=== PATIENT | female | born 1985 | race Caucasian/White ===

== ENCOUNTER → 2019-03-10 12:58 | Outpatient (BNVA) | payer OTHER, MEDICAID, SELFPAY | PROVIDERS: Family Provider Family Medicine; PCP Family Medicine; Visit Provider Obstetrics & Gynecology | DX: Z34.83 Encounter for supervision of other normal pregnancy, third trimester (principal) | CPT/HCPCS: 84315; 87086 ==

== ENCOUNTER → 2019-03-24 15:08 | Outpatient (BNVA) | payer OTHER, MEDICAID, SELFPAY | PROVIDERS: Family Provider Family Medicine; PCP Family Medicine; Visit Provider Nurse Practitioner Women's Health | DX: Z34.90 Encounter for supervision of normal pregnancy, unspecified, unspecified trimester (principal) | CPT/HCPCS: 84315 ==

== ENCOUNTER → 2019-04-07 13:08 | Outpatient (BNVA) | payer OTHER, MEDICAID, SELFPAY | PROVIDERS: Family Provider Family Medicine; PCP Family Medicine; Visit Provider Obstetrics & Gynecology | DX: Z01.89 Encounter for other specified special examinations (principal) | CPT/HCPCS: 84315 ==

== ENCOUNTER → 2019-04-21 12:58 | Outpatient (BNVA) | payer OTHER, MEDICAID, SELFPAY | PROVIDERS: Family Provider Family Medicine; PCP Family Medicine; Visit Provider Obstetrics & Gynecology | DX: O32.1XX0 Maternal care for breech presentation, not applicable or unspecified (principal); Z3A.19 19 weeks gestation of pregnancy | CPT/HCPCS: 84315; 87081 ==

== ENCOUNTER → 2019-04-28 12:58 | Outpatient (BNVA) | payer OTHER, MEDICAID, SELFPAY | PROVIDERS: Family Provider Family Medicine; PCP Family Medicine; Visit Provider Obstetrics & Gynecology | DX: Z01.89 Encounter for other specified special examinations (principal) | CPT/HCPCS: 84315 ==

== ENCOUNTER → 2019-05-05 13:06 | Outpatient (BNVA) | payer OTHER, MEDICAID, SELFPAY | PROVIDERS: Family Provider Family Medicine; PCP Family Medicine; Visit Provider Obstetrics & Gynecology | DX: Z01.89 Encounter for other specified special examinations (principal) | CPT/HCPCS: 84315 ==

== ENCOUNTER → 2019-05-12 13:02 | Outpatient (BNVA) | payer OTHER, MEDICAID, SELFPAY | PROVIDERS: Family Provider Family Medicine; PCP Family Medicine; Visit Provider Obstetrics & Gynecology | DX: Z01.89 Encounter for other specified special examinations (principal) | CPT/HCPCS: 84315 ==

== ENCOUNTER 2019-05-16 13:09 | Inpatient (IN) | payer OTHER, MEDICAID, SELFPAY ==
[2019-05-16] VITALS (11 sets, daily range): BP systolic 0–127; BP diastolic 0–76; PULSE 61–80; RESP 14–16; TEMP 36.8–36.9; BMI 30.4
[2019-05-16] MEDS: miSOPROStol 100 mcg tablet 25 MCG VAGINAL (14:15)
[2019-05-16 14:18] LABS: Basophils # 0.1 10^3/uL (0.0-0.1); Basophils % 0.5 %; Eosinophils # 0.2 10^3/uL (0.0-0.8); Eosinophils % 1.8 %; Hematocrit 33.4 % (37.0-47.0); Hemoglobin 10.7 g/dL (11.5-15.3); Lymphocytes # 1.2 10^3/uL (0.8-4.8); Lymphocytes % 11.3 %; Mean Corpuscular Hemoglobin 28.9 pg (28.0-34.0); Mean Corpuscular Volume 90.3 fL (81-99); Mean Platelet Volume 11.4 fL (7.4-10.4); Monocytes # 0.7 10^3/uL (0.2-0.9); Monocytes % 6.1 %; Neutrophils # 8.6 10^3/uL (1.8-7.7); Neutrophils % 79.5 %; Nucleated Red Blood Cells % 0 %; Platelet Count 145 10^3/cmm (130-400); Red Cell Distribution Width 13.9 % (12.1-15.1); White Blood Count 10.8 10^3/uL (4.0-10.0)
--- NOTE | 2019-05-16 21:37 | PM.PN ---
Subjective Subjective: Interval history: Patient is a 34-year-old white female 3, para 2-0-0-2 with an LMP of 08/11/2018 and an EDC of 05/18/2019 based on LMP and early ultrasound which placed her at 39-5/7 weeks gestation today. She had presented to labor and delivery this afternoon for induction of labor due to term . She received 1 dose of Cytotec and proceeded into labor. Patient is uncomfortable with contractions and feeling pressure. I was contacted by the nurse due to a question on exam. Nurse was thinking that there was a forebag below the head. She reported her as being 9 cm dilated. Vitals/I&O/Wt Last Vital Signs Temp 98.3 F 05/16/19 19:09 Pulse 72 05/16/19 18:36 Resp 16 05/16/19 13:23 BP 127/70 05/16/19 18:36 Weight last 48 hrs Weight 194 lb Physical Exam Const: COMMON NORMALS: no apparent distress, average body habitus, alert and well nourished GENERAL APPEARANCE: well developed ORIENTATION/CONSCIOUSNESS: Yes oriented to person, Yes oriented to place and Yes oriented to time Resp: COMMON NORMALS: normal respiratory effort and clear to auscultation bilaterally AUSCULTATION: clear to auscultation bilaterally Cardio: COMMON NORMALS: regular rate, regular rhythm, no gallops, no murmurs and no rub RATE: regular rate RHYTHM: regular rhythm : OTHER: She is 9 cm dilated with what it felt to be a breech presentation. Bedside ultrasound confirmed loli breech presentation. Neuro: SENSORIUM/ORIENTATION: Yes alert, Yes oriented to person, Yes oriented to place and Yes oriented to time Psych: COMMON NORMALS: affect normal MOOD & AFFECT: Yes euthymic mood Data : 05/16/19 14:00 A&P Assessment and plan (1) Breech presentation: Discussed with patient and partner the risks associated with attempted vaginal breech delivery. She is a good candidate with this being her third delivery with the baby in a loli breech presentation. However, after discussing the risks of potential head entrapment, patient wishes to proceed with a section. Risks of section were discussed with her including bleeding to the point of needing a blood transfusion, infection, and injury to intra-abdominal organs including bowel, bladder, blood vessels, nerves, and ureters. Questions were answered. She still wished to proceed with section. She will be emergently prepared for . Status: Acute Code(s): O32.1XX0 - Maternal care for breech presentation, not applicable or unspecified Attestations Medical Necessity Statement*: Patient is in labor with breech presentation. Coding Level of Care Code Acute Sander Wooden Pencils for Portia Worthy Diagnoses Breech presentation O32.1XX0
--- NOTE | 2019-05-16 22:34 | P.ANESASSM_ITS ---
Pre-Anesthetic Assessment Pre-Anesthetic Assessment: Height/Weight: Height 1.7 m Weight 87.997 kg Temp Pulse Resp BP 98.3 F 72 16 127/70 05/16/19 19:09 05/16/19 18:36 05/16/19 13:23 05/16/19 18:36 Preop Diagnosis: Breech presentation Proposed Procedure: Familial anesthetic complications: None Last intake: NPO > 8 hrs Ate 0900 Drank 1300 Social: Social History: No alcohol and No tobacco Exam: Pre-Anes Outpt Exam: alert, oriented x 3, clear to auscultation bilaterally and regular rate & rhythm Airway: Cervical ROM: WNL MP: 3 Dentition: Full Pulmonary: Pulmonary: None reported CV/HEM: CV/HEM: None reported : : None reported Hepatic: Hepatic: None reported GI: GI: None reported Metabolic: Metabolic: None reported Musc/skel: Musc/skel: None reported Neuropsych: Neuropsych: None reported Anesthetic Plan: ASA status: 2E Anesthesia: Regional (specify below) Other: spinal for emergent (breech presentation) Risk of > 500 ml blood loss (7ml/kg in children): Yes, adequate IV access and fluids planned PFS Anesthesia Female Reproductive History: : 3 Data Anesthesia CBC & Chem 7: 05/16/19 14:00 Other Labs: Laboratory Results - last 48 hr 05/16/19 14:00 WBC 10.8 H RBC 3.70 L Hgb 10.7 L Hct 33.4 L MCV 90.3 MCH 28.9 MCHC 32.0 RDW 13.9 Plt Count 145 MPV 11.4 H Neut % (Auto) 79.5 Lymph % (Auto) 11.3 Andrew % (Auto) 6.1 Eos % (Auto) 1.8 Baso % (Auto) 0.5 Neut # (Auto) 8.6 H Lymph # (Auto) 1.2 Andrew # (Auto) 0.7 Eos # (Auto) 0.2 Baso # (Auto) 0.1 Nucleated RBC % (auto) 0 Nucleated RBCs # 0.0 Cardiac Studies: No Data to Display
--- NOTE | 2019-05-16 23:06 | PM.OP ---
Operative Report Date of procedure: May 16, 2019 Pre-op Diagnosis: Breech presentation, Term at 39-5/7 weeks gestation Post-op Diagnosis: Loli breech presentation, Term at 39-5/7 weeks gestation, Viable female Procedure Done: Primary low transverse section Specimens removed/disposition: None Surgeon: Noe Soria Bridge Crane Operator: VIRI Ortega Anesthesia: Other (Spinal) Estimated blood loss (mL): 800 Complications: None Brief History: Patient is a 34-year-old white female 3, para 2-0-0-2 with an LMP of 08/11/2018 and an EDC of 05/18/2019 based on LMP and consistent with early ultrasound, which placed her at 39-5/7 weeks gestation today. She had presented to labor and delivery this afternoon for induction of labor due to term . By the nurses exam, she was reported to be 1 cm dilated, uneffaced, posterior cervix. She received 1 dose of Cytotec 25 mcg vaginally and proceeded into labor. At approximately 1830, she had spontaneous rupture of membranes and was 2 cm dilated. Approximately 30 minutes later she was checked and was noted to have a forebag. She was 3 cm dilated at the time and the forebag was ruptured. At approximately 2114, she was checked by the nurse and reported as 9 cm dilation with a probable second forebag. I went in and checked following this and I was suspicious of a breech presentation. Bedside ultrasound was quickly performed and confirmed a loli breech presentation. The risks associated with a vaginal breech delivery was discussed and patient wished to proceed with a section. Procedure: Patient was taken to the operating room where spinal anesthesia was obtained. She was prepped and draped in the usual sterile fashion in a dorsal supine position with a leftward tilt. Stover catheter and sequential compression boots had been placed prior to starting the case. A Pfannenstiel skin incision was made with a knife and carried down to the underlying fascia with the knife. Fascia was incised in the midline with the knife and extended laterally with Mello scissors. Superior aspect of the fascia was grasped with Stacy clamps, elevated, and sharply and bluntly dissected. The inferior aspect of the fascia was grasped with Stacy clamps, elevated, and sharply and bluntly dissected. The rectus muscles were in the midline. Peritoneum was sharply entered. Peritoneal incision was extended both superiorly and inferiorly with good visualization of the bladder. Bladder blade was inserted. The vesicouterine peritoneum was tented up and sharply entered. It was extended laterally and the bladder flap was created digitally. Bladder blade was reinserted. A transverse incision was made with the knife in the lower uterine segment. Clear fluid was obtained upon entry into the uterine cavity. The baby's buttocks was presenting at the incision. The buttocks was grasped elevated and delivered through the incision. This was delivered until the legs were able to be delivered through incision. The baby was then delivered up to the shoulders. It was rotated in a clockwise direction facilitating delivery of the left arm. It was then rotated in a counterclockwise direction facilitating delivery of the right arm. The baby was then elevated and the head was delivered. 2 loops of nuchal cord were noted and reduced. The cord was clamped and cut and the infant was handed off to the waiting nurses. Cord blood was obtained. Placenta was delivered via uterine massage. Patient received 20 units of Pitocin in the IV fluids. The uterus was exteriorized and cleared of clots and debris. The uterine incision was closed in a running locking fashion using 0 Vicryl suture. The incision was imbricated using 0 Vicryl suture in a horizontal mattress fashion. The incision was inspected and noted to be hemostatic. Posterior cul-de-sac was thoroughly irrigated and cleared of clots and blood. The uterus was returned to the abdomen. The uterine incision was irrigated and noted to be hemostatic. The gutters were cleared of clots and blood. The rectus muscles and peritoneum were reapproximated in the midline using interrupted stitches of 2-0 Vicryl suture. The muscle layer was irrigated and noted to be hemostatic. The fascia was reapproximated using 0 Vicryl suture in a running fashion. The subcutaneous layer was irrigated and brought to hemostasis using electrocautery. It was reapproximated using 3-0 plain suture in an interrupted fashion. Skin was reapproximated using 4-0 Vicryl suture in a subcuticular fashion. Steri-Strips were applied. Patient tolerated the procedures well. Sponge, needle, and instrument counts were correct. DRAINS: Stover catheter FINDINGS: 1. Viable, female infant, loli breech presentation, weighing 8 lbs 0 oz (3620 g) with a length of 20-3/4 inches and Apgars of 8 at 1 minute and 9 at 5 minutes. 2. Normal appearing uterus, tubes, and ovaries. POSTOPERATIVE STATUS: The patient was left to recover in satisfactory condition
[2019-05-17] VITALS (10 sets, daily range): BP systolic 88–104; BP diastolic 52–70; PULSE 67–89; RESP 14–18; TEMP 36.4–36.9; O2SAT 95–98
[2019-05-17] MEDS: metoclopramide 5 mg/mL SDV 2 mL 10 MG IV (00:19)
[2019-05-17] MEDS: lactated ringers 1,000 ML 125 ML IV (00:20)
[2019-05-17] MEDS: metoclopramide 5 mg/mL SDV 2 mL 10 MG IVP (00:20)
[2019-05-17] MEDS: citric acid-sodium citrate 30 mL UDC PO (00:22)
[2019-05-17] MEDS: famotidine 20 mg/2 mL INJ IVP (00:23)
[2019-05-17] MEDS: dextrose 5%-lactated ringers 1,000 ML 125 ML IV (02:41)
--- NOTE | 2019-05-17 02:59 | PC.NURSE ---
2345 05/16/2019 PATIENT TRANSFERRED FROM PACU TO RM [id number]. SHIRA RN
--- NOTE | 2019-05-17 03:06 | PC.NURSE ---
INTAKE/OUTPUT INTERVENTION ENTERED IN ERROR. SHIRA RN
--- NOTE | 2019-05-17 05:44 | PC.NURSE ---
0545 05/17/2019 Patient up to chair. Clear liquids set up. Patient tolerates activity well. SHIRA RN
[2019-05-17] MEDS: prenatal vitamin Capsule 1 CAP PO (09:01)
[2019-05-17] MEDS: docusate sodium 100 mg Capsule PO ×2 (09:01→21:35)
--- NOTE | 2019-05-17 09:01 | P.PN_ITS ---
Subjective Subjective: Interval history: Denies complaints. Reports pain has been well controlled with Duramorph. Denies any lightheadedness or dizziness with getting up to chair. Denied any shortness of breath or chest pains. Denies any nausea or vomiting. Tolerating a clear liquid diet. Vitals/I&O/Wt Last Vital Signs Temp 98.3 F 05/16/19 19:09 Pulse 78 05/17/19 05:46 Resp 14 05/17/19 05:46 BP 97/63 05/17/19 05:46 Pulse Ox 95 05/17/19 05:46 05/16/19 05/17/19 05/17/19 22:59 06:59 14:59 Intake Total 240 / 240 Output Total 350 / 350 Balance -110 / -110 Weight last 48 hrs Weight 194 lb Physical Exam Const: COMMON NORMALS: no apparent distress, average body habitus, alert and well nourished GENERAL APPEARANCE: well developed ORIENTATION/CONSCIOUSN ESS: Yes oriented to person, Yes oriented to place and Yes oriented to time Resp: COMMON NORMALS: normal respiratory effort and clear to auscultation bilaterally AUSCULTATION: clear to auscultation bilaterally Cardio: COMMON NORMALS: regular rate, regular rhythm, no gallops, no murmurs and no rub RATE: regular rate RHYTHM: regular rhythm PERIPHERAL PULSES: posterior tibial pulses present GI: COMMON NORMALS: soft to palpation, no hepatosplenomegaly and no masses (Except for firm uterus, approximately 1 fingerbreadth below the umbilicus) INSPECTION: Yes incision (Dressing dry) AUSCULTATION: Yes normoactive bowel sounds PALPATION: Yes soft, Yes tender (In the lower abdomen), Yes no hepatosplenomegaly and No hernia : EXTERNAL FEMALE EXAM: No hernia Neuro: SENSORIUM/ORIENTATION: Yes alert, Yes oriented to person, Yes oriented to place and Yes oriented to time Psych: COMMON NORMALS: affect normal MOOD & AFFECT: Yes euthymic mood Urinary Catheter Management^: Stover: Cath Placed During This Visit: yes Urinary Catheter Date of Insertion: 05/16/19 Data : 05/16/19 14:00 A&P Assessment and plan (1) Breech presentation: Postoperative day 1, status post primary section. Patient doing well at this time. Pain medication use as Duramorph wears off discussed with patient. Increase activities through the day. May shower later this afternoon. Continue clear liquids until passing flatus. Status: Acute Code(s): O32.1XX0 - Maternal care for breech presentation, not applicable or unspecified Attestations Medical Necessity Statement*: Patient is less than 12 hours out from a section. Coding Level of Care Code Acute Photographic Equipment Assembler for Chg Fwd Diagnoses Breech presentation O32.1XX0
--- NOTE | 2019-05-17 13:10 | ANE.PACU2 ---
 Inpatient post-anesthesia follow up: Airway intact: Yes Vital signs: Temperature 98.3 F Pulse Rate 70 Respiratory Rate 17 Blood Pressure 98/65 Pulse Oximetry 96 Oxygen Delivery Me thod Room Air Oxygen Flow Rate Fraction of Inspir ed Oxygen Hydration adequate: Yes Nausea and vomiting: No Pain level: 1 Mental status: Baseline Additional Comments: Doing well no H/A, no residual numbness
[2019-05-17 14:32] LABS: Hematocrit 28.8 % (37.0-47.0); Hemoglobin 9.2 g/dL (11.5-15.3); Mean Corpuscular HGB Conc 31.9 g/dL (30.0-36.0); Mean Corpuscular Hemoglobin 29.1 pg (28.0-34.0); Mean Corpuscular Volume 91.1 fL (81-99); Mean Platelet Volume 11.1 fL (7.4-10.4); Platelet Count 142 10^3/cmm (130-400); Red Blood Count 3.16 10^6/uL (4.1-5.3); Red Cell Distribution Width 14.1 % (12.1-15.1); White Blood Count 14.9 10^3/uL (4.0-10.0)
[2019-05-18 04:00] VITALS: BP 103/68; PULSE 73; RESP 16; TEMP 36.8
[2019-05-18 07:20] VITALS: PULSE 71; RESP 16; O2SAT 99
[2019-05-18 07:25] VITALS: PULSE 73
--- NOTE | 2019-05-18 07:45 | PM.DCS ---
Discharge Providers Date of Admission: 05/16/19 13:09 Date of Discharge: May 18, 2019 Attending Provider at Admission: Christiane Michaels MD Attending Provider at Discharge: Noe Soria MD Primary Care Provider: Jarocho Schafer MD Diagnoses at Discharge Discharge Diagnosis (1) Breech presentation: Status: Acute (2) Anemia during , delivered, current hospitalization: Status: Acute Reason for Visit Reason for Visit: Reason For Visit: INDUCTION Hospital Course Hospital Course: Patient is a 34-year-old white female 3, now para 3-0-0-3 with an LMP of 08/11/2018 and an EDC of 05/18/2019 She presented to labor and delivery in the afternoon of 05/16/2019 for Cytotec cervical ripening due to term at 39-5/7 weeks gestation. She had a very unfavorable cervix with the cervix being 1 cm dilated, thick, high, moderate consistency, and posterior. She received 1 dose of Cytotec 25 mcg vaginally and proceeded to contract regularly. She progressed into labor. She had spontaneous rupture membranes with clear fluid present. She progressed approximately 9 cm dilated with the nurse checking at that time and thinking patient may have had a forebag. On my exam, it felt to be possibly breech with the buttocks presenting. A bedside ultrasound was performed which confirmed a loli breech presentation. Options of attempting a breech delivery versus section were discussed and patient wished to proceed to a . A primary low transverse section was performed with the delivery of a loli breech female infant weighing 8 lbs 0 oz (3620 g) with a length of 20-3/4 inches and Apgars of 8 at 1 minute and 9 at 5 minutes. Day 1 Patient is doing well. She reported tolerating liquids without nausea or vomiting. Her pain was well controlled with Duramorph. She was sitting up in a chair without lightheadedness or dizziness. She was afebrile with stable vital signs. Activities were increased through the day. Stover catheter was removed later in the day. She started passing flatus and diet was advanced. She was switched to oral pain medications later that afternoon. Day 2 Patient reports she continues to do well. She states her pain is been well controlled with ibuprofen. She denied any lightheadedness or dizziness with ambulation. She denied any shortness of breath or chest pains. She reports tolerating a regular diet without nausea or vomiting. She denied any problems with urination. She states that her bleeding is slowed. She is breast-feeding. She would like to be released to home today. PHYSICAL EXAM See below PLAN Patient was noted to be anemic on admission. Postdelivery she had dropped as typically expected. She is currently asymptomatic. She was instructed to take [id number] iron in addition to her vitamins at home. Discharged home. Discharge instructions discussed with patient. Patient is to follow-up in the office in 2 and 6 weeks following discharge. Physical Exam Const: COMMON NORMALS: no apparent distress, average body habitus, alert and well nourished GENERAL APPEARANCE: well developed ORIENTATION/CONSCIOUSNESS: Yes oriented to person, Yes oriented to place and Yes oriented to time Resp: COMMON NORMALS: normal respiratory effort and clear to auscultation bilaterally AUSCULTATION: clear to auscultation bilaterally Cardio: COMMON NORMALS: regular rate, regular rhythm, no gallops, no murmurs and no rub RATE: regular rate RHYTHM: regular rhythm GI: COMMON NORMALS: soft to palpation, no hepatosplenomegaly and no masses INSPECTION: Yes incision (Clean dry and intact. Steri-Strips present.) AUSCULTATION: Yes normoactive bowel sounds PALPATION: Yes soft, Yes tender (Lower abdomen), Yes no hepatosplenomegaly and No hernia : EXTERNAL FEMALE EXAM: No hernia Neuro: SENSORIUM/ORIENTATION: Yes alert, Yes oriented to person, Yes oriented to place and Yes oriented to time Psych: COMMON NORMALS: affect normal MOOD & AFFECT: Yes euthymic mood Urinary Catheter Management^: Stover: Cath Placed During This Visit: yes Urinary Catheter Date of Insertion: 05/16/19 Discharge Data Data Completed and Pending: Labs from last 24 hours 05/17/19 14:00 WBC 14.9 H RBC 3.16 L Hgb 9.2 L Hct 28.8 L MCV 91.1 MCH 29.1 MCHC 31.9 RDW 14.1 Plt Count 142 MPV 11.1 H Vitals: Last Vital Signs Temp 98.2 F 05/18/19 04:00 Pulse 73 05/18/19 07:25 Resp 16 05/18/19 07:20 BP 103/68 05/18/19 04:00 Pulse Ox 99 05/18/19 07:20 Discharge Plan Discharge Patient Disposition: Home, Self-Care Condition: Stable Prescriptions: New hydrocodone-acetaminophen 5-325 mg Tablet 1 - 2 tab PO Q6H PRN (Reason: Moderate To Severe Pain) Qty: 20 RF: 0 ibuprofen 800 mg Tablet 800 mg PO TID PRN (Reason: pain) Qty: 40 RF: 0 Continued Vitamin 1 tab PO DAILY RF: 0 magnesium 1 tab PO DAILY RF: 0 Discharge Orders: Discharge Order (Routine); Ordered 05/18/19 Ordered By: Noe Soria Referrals: Noe Soria MD [Physician] - 2 weeks (2 week postoperative check with Dr. Soria [address] Soria) Discharge Diet: Regular Discharge Activity: Limit activity as instructed Patient Instructions: OB [facility] Discharge Attestations Time Spent in Discharge Care*: less than 30 min Quality Metrics Clinical Quality Measures During this hospital stay, did patient experience: None Coding Level of Care Code Acute Dispatcher Street Department for Chg Fwd Diagnoses Breech presentation O32.1XX0 Anemia during , delivered, current hospitalization O99.02
--- NOTE | 2019-05-18 07:45 | PC.NURSE ---
Baby is heard crying loudly at nurse's station, advertising copywriter to room to assess. Mother is sleeping and is very hard to wake. Melting Supervisor picked up baby and second nurse prepared bottle for baby and attempted to wake mother. After several attempts mother is finally woken up and baby is given to her to feed. Baby last ate at 0555 and had 30ml. Will continue to monitor and follow up as needed.
[2019-05-18] MEDS: lanolin oint 7 gm 1 APPLIC TOPICAL (08:33)
[2019-05-18] MEDS: docusate sodium 100 mg Capsule PO (08:56)
[2019-05-18] MEDS: prenatal vitamin Capsule 1 CAP PO (08:56)
[2019-05-18 09:14] VITALS: BP 107/73; PULSE 82; RESP 16; TEMP 36.8
[2019-05-18 10:03] VITALS: BP 107/73; PULSE 82; RESP 16; TEMP 36.8; O2SAT 98
== END 2019-05-18 09:35 | disposition home or self-care (01) | DRG 788 ==
PROVIDERS: Obstetrics & Gynecology; Admitting Provider Obstetrics & Gynecology; Family Provider Family Medicine; PCP Family Medicine; Visit Provider Obstetrics & Gynecology
PROC: 10D00Z1 Extraction of Products of Conception, Low, Open Approach (ICD-10-PCS; CPT 59514; principal; 2019-05-16 21:30)
DX: O32.1XX0 Maternal care for breech presentation, not applicable or unspecified (principal); Z3A.39 39 weeks gestation of pregnancy; Z37.0 Single live birth; O90.81 Anemia of the puerperium; D64.9 Anemia, unspecified
CPT/HCPCS: 12345; 36415; 51702; 59025; 59409; 85025; 85027; 96374; 96375; J0690; J1885; J2274; J2405; J2590; J2765; J3490; J7030

== ENCOUNTER → 2019-07-04 08:52 | Outpatient (BNVA) | payer OTHER, MEDICAID, SELFPAY | PROVIDERS: Family Provider Family Medicine; PCP Family Medicine; Visit Provider Obstetrics & Gynecology | DX: O90.81 Anemia of the puerperium (principal); O99.02 Anemia complicating childbirth | CPT/HCPCS: 85027 ==

== ENCOUNTER → 2021-06-13 14:35 | Outpatient (BNVA) | payer OTHER, SELFPAY | PROVIDERS: Family Provider Family Medicine; PCP Family Medicine; Visit Provider Nurse Practitioner Family | DX: R30.0 Dysuria (principal) | CPT/HCPCS: 81003 ==

== ENCOUNTER → 2022-09-29 12:54 | Outpatient (BNVA) | payer OTHER, MEDICAID, SELFPAY | PROVIDERS: Family Provider Family Medicine; PCP Family Medicine; Visit Provider Family Medicine | DX: E03.8 Other specified hypothyroidism (principal) | CPT/HCPCS: 84443 ==

== ENCOUNTER → 2022-11-08 10:25 | Outpatient (BNVA) | payer OTHER, MEDICAID, SELFPAY | PROVIDERS: Family Provider Family Medicine; PCP Family Medicine; Visit Provider Family Medicine | DX: R30.0 Dysuria (principal) | CPT/HCPCS: 81000 ==

== ENCOUNTER → 2023-07-07 08:37 | Outpatient (BNVA) | payer OTHER, SELFPAY | PROVIDERS: Family Provider Family Medicine; PCP Family Medicine; Visit Provider Nurse Practitioner Women's Health | DX: N93.9 Abnormal uterine and vaginal bleeding, unspecified (principal); N84.0 Polyp of corpus uteri; R93.89 Abnormal findings on diagnostic imaging of other specified body structures | CPT/HCPCS: 76830 ==

== ENCOUNTER → 2023-11-01 15:55 | Outpatient (BNVA) | payer OTHER, SELFPAY | PROVIDERS: Family Provider Family Medicine; PCP Family Medicine; Visit Provider Obstetrics & Gynecology | DX: N92.0 Excessive and frequent menstruation with regular cycle (principal) | CPT/HCPCS: 85025 ==

== ENCOUNTER 2023-12-29 10:18 | Day surgery (SDC) | payer OTHER, SELFPAY ==
--- NOTE | 2023-12-20 10:19 | ANES.PREANE2 ---
Pre-Anesthetic Assessment Height/Weight: Height 5 ft 7 in Preop Diagnosis: Heavy periods Operation Date: 12/28/23 07:10 Proposed Procedures p Hysteroscopy w/ Myosure 31997, 59797, N92.0 N84.0(Not Applicable) - Gerhard Walters MD s Dilation And Curettage (D&C)(Not Applicable) - Gerhard Walters MD Was Beta David taken within 24 hours: N/A Was Clonidine taken within 24 hours: N/A Social No alcohol and No tobacco Exam alert, oriented x 3, clear to auscultation bilaterally and regular rate & rhythm Airway Submandibular: within normal limits Cervical ROM: within normal limits Mallampati: Class II Dentition: full Anesthetic Plan ASA status: 1 Anesthesia: General Other: Patient has no prior anesthetic history Plan for her to be n.p.o. after midnight day prior to surgery Experiencing heavy periods, plan for hysteroscopy Patient denies any cardiac or pulmonary issues METs greater than 4 Plan for general anesthesia Medications/Allergies Home Medications Medication Instructions Recorded Confirmed Last Taken Type medroxyprogesterone 150 mg/mL See Rx Instructions .Route 12/06/23 12/20/23 12/06/23 Rx intramuscular syringe .COMPLEX #1 mL Allergies Allergy/AdvReac Type Severity Reaction Status Date / Time No Known Allergies Allergy Verified 12/20/23 08:23 [facility] Anesthesia Medical History Bilateral impacted cerumen Blood type O+ Surgical History History of section, low transverse (05/16/19) LTCS. Dx: Breech. [place] [facility] [place] confirmed LTCS with 2 layer closure. Family History Mother Hypertension Denies family history of Colon cancer Ovarian cancer Prostate cancer Diabetes Heart disease Hypercholesteremia Breast cancer Uterine cancer Thyroid disease Stroke Social History Smoking and tobacco/nicotine status: never used tobacco/nicotine Data Anesthesia Cardiac Studies: No Data to Display
[2023-12-29] VITALS (9 sets, daily range): BP systolic 113–143; BP diastolic 76–100; PULSE 81–102; RESP 16–18; TEMP 36.1–36.6; O2SAT 95–99; BMI 32.7
[2023-12-29 10:47] LABS: OR HCG Qualitative Urine Negative (Negative)
[2023-12-29 10:57] LABS: Bilirubin Urine Negative (Negative); Blood Urine Negative (Negative); Glucose Urine UA Negative (Normal); Ketones Urine Negative (Negative); Leukocyte Esterase Urine Trace (Negative); Nitrate Urine Negative (Negative); Protein Urine Negative (Negative); Specific Gravity, Urine 1.011 (1.005-1.030); Urine Appearance Clear (CLEAR); Urine Color Yellow (Yellow); pH Urine 7.5 (5-7)
[2023-12-29 11:02] LABS: Add Urine Microscopic? YES; Bacteria Urine None Seen /hpf; Hyaline Casts Urine 0.81 /lpf; RBC Urine 0-2 /hpf (0-2); Squamous Epithelial Cell Urine 0-5 /hpf (0-5); WBC Urine 0-5 /hpf (0-5)
[2023-12-29 11:12] LABS: Basophils # 0.1 10^3/uL (0.0-0.1); Eosinophils # 0.1 10^3/uL (0.0-0.8); Eosinophils % 1.5 %; Hematocrit 40.4 % (36-47); Lymphocytes # 1.1 10^3/uL (0.8-4.8); Lymphocytes % 17.9 %; Mean Corpuscular HGB Conc 31.2 g/dL (30-55); Mean Corpuscular Hemoglobin 26.4 pg (27-33); Mean Corpuscular Volume 84.7 fl (85-98); Mean Platelet Volume 9.8 fL (7.4-10.4); Monocytes # 0.4 10^3/uL (0.2-0.9); Monocytes % 5.8 %; Neutrophils # 4.46 10^3/uL (1.8-7.7); Neutrophils % 73.6 %; Nucleated Red Blood Cells % 0 %; Platelet Count 231 10^3/cmm (157-399); Red Blood Count 4.77 10^6/uL (3.85-5.65); Red Cell Distribution Width 13.2 % (12.1-15.1); White Blood Count 6.05 10^3/uL (3.29-11.43)
[2023-12-29] MEDS: sodium chloride 0.9% 1,000 ML 30 ML IV (11:16)
[2023-12-29] MEDS: scopolamine 1.5 Patch 1 PATCH TRANSDERMA (11:17)
[2023-12-29 11:32] LABS: Alanine Aminotransferase 13 U/L (0-33); Albumin Level 4.4 g/dL (3.5-5.2); Alkaline Phosphatase 106 U/L (35-105); Anion Gap 14.9 (5-19); Aspartate Amino Transferase 14 U/L (0-32); Blood Urea Nitrogen 6 mg/dL (6-20); Calcium 8.8 mg/dL (8.5-10.5); Carbon Dioxide 22 mmol/L (22-29); Chloride 107 mmol/L (98-107); Creatinine Clr Calc Pharmacy 150.2808; Globulin 2.6 g/dL (1.3-4.6); Glomerular Filtration Rate 111.9 mL/min (90-130); Glucose 90 mg/dL (65-115); Osmolality Calculated 287 mOsm/kg (285-295); Potassium 3.9 mmol/L (3.5-5.1); Sodium 140 mmol/L (136-145); Total Bilirubin 0.5 mg/dL (0.15-1.2)
--- NOTE | 2023-12-29 11:54 | P.ANESUD_ITS ---
Pre-Anesthetic Update Pre-Anesthetic Assessment: Date of Surgery/Procedure: 12/29/23 Preop Josefa gnosis: Endometrial polyp, abnormal uterine bleeding Proposed Procedure: Operation Date: 12/29/23 12:00 Proposed Procedures p Hysteroscopy w/ Myosure 73190, 01738, N92.0 N84.0(Not Applicable) - Gerhard Walters MD s Dilation And Curettage (D&C)(Not Applicable) - Gerhard Walters MD Any changes to Pre-Anesthetic Assessment?: No Last Intake: Intake Last Liquid Date 12/28/23 Last Liquid Time 20:00 Last Solid Date 12/28/23 Last Solid Time 20:00 Labs Last 48hrs: Short CBC 12/29/23 Range/Units 11:03 WBC 6.05 (3.29-11.43) 10^ 3/uL Hgb 12.60 (11.27-16.99) g/ dL Hct 40.4 (36-47) % MCV 84.7 L (85-98) fl Plt Count 231 (157-399) 10^3/c mm Neut % (Auto) 73.6 % Neut # (Auto) 4.46 (1.8-7.7) 10^3/u L BMP 12/29/23 11:03 Sodium 140 Potassium 3.9 Chloride 107 Carbon Dioxide 22 BUN 6 Creatinine 0.6 Glucose 90 Calcium 8.8 Liver Function 12/29/23 Range/Units 11:03 Total Bilirubin 0.5 (0.15-1.2) mg/dL AST 14 (0-32) U/L ALT 13 (0-33) U/L Alkaline Phosphata se 106 H (35-105) U/L Albumin 4.4 (3.5-5.2) g/dL Urine 12/29/23 Range/Units 10:35 Urine Color Yellow (Yellow) Urine Appearance Clear (CLEAR) Urine pH 7.5 (5-7) Ur Specific Gravit y 1.011 (1.005-1.030) Urine Protein Negative (Negative) Urine Glucose (UA) Negative (Normal) Urine Ketones Negative (Negative) Urine Nitrate Negative (Negative) Urine Bilirubin Negative (Negative) Ur Leukocyte Ksenia ase Trace A (Negative) Urine RBC 0-2 (0-2) /hpf Urine WBC 0-5 (0-5) /hpf Blood Bank 12/29/23 11:03 Blood Type O Positive Rho(D) Type Rh positive Antibody Screen Negative Vitals: Temperature 97.6 F 12/29/23 10:42 Temperature Source Temporal Artery S can 12/29/23 10:42 Pulse Rate 81 12/29/23 10:42 Pulse Rhythm Regular 12/29/23 10:49 Pulse Strength 3+ Normal 12/29/23 10:49 Respiratory Rate 16 12/29/23 10:42 Blood Pressure 129/96 12/29/23 10:42 Blood Pressure Rachael n 107 12/29/23 10:42 Pulse Oximetry 97 12/29/23 10:42 Oxygen Delivery Me thod Room Air 12/29/23 10:49 Cardiac Studies: No Data to Display
--- NOTE | 2023-12-29 12:54 | W.PM.OPSUD ---
Surgery/Procedure H&P Update DATE OF PROCEDURE: December 29, 2023 DATE H&P PERFORMED: 12/20/23 H&P UPDATE INFORMATION: I have reviewed H&P completed within last 30 days, I have examined patient prior to procedure and No changes to prior documentation PREOP DIAGNOSIS: Endometrial polyp, abnormal uterine bleeding PLANNED PROCEDURE: Operation Date: 12/29/23 12:00 Proposed Procedures p Hysteroscopy w/ Myosure 19597, 95642, N92.0 N84.0(Not Applicable) - Gerhard Walters MD s Dilation And Curettage (D&C)(Not Applicable) - Gerhard Walters MD
[2023-12-29] MEDS: ceFAZolin 2,000 mg SDV 2000 MG IVP (13:01)
[2023-12-29] MEDS: lidocaine-epi 2% PF 1:200,000 20 mL SDV INJECTION (13:28)
--- NOTE | 2023-12-29 13:46 | PM.OP ---
Operative Report Date of procedure: December 29, 2023 Pre-op diagnosis: Abnormal uterine bleeding Endometrial polyp Post-op diagnosis: same Procedure done: Hysteroscopy with dilation and curettage via MyoSure Specimens removed/disposition: Endometrial polyp and endometrial curetting Surgeon: Gerhard Walters MD Estimated blood loss (mL): 5 IV fluids (mL): 700 Complications: None Findings: Endometrial polyp on left endometrial wall Procedure: After informed consent, the risks included but were not limited to bleeding, infection, injury to internal organs. The patient was counseled on a possible laparotomy and on the potential need for hysterectomy. The patient expressed understanding of the risks involved, all questions were answered, and the patient consented to the procedure. The patient was taken to the operating room where general anesthesia was administered. She was placed in the dorsal lithotomy position and prepped and draped in sterile fashion. A time out procedure was performed. The patient was examined under anesthesia and found to have a normal uterus with normal adnexa. A sterile weight speculum was placed in the vagina. The uterus was then gently sounded to 8 cm, and the cervix was dilated. The 0 degrees MyoSure hysteroscope was advanced gently to the uterine fundus while visualizing the monitor. Survey of the uterine cavity showed: In no endometrial polyp on left endometrial wall, the fundus shows normal proliferative endometrium; left ostium was visualized, and lateral wall with proliferative endometrium; right ostium visualized, and lateral wall with proliferative endometrium; anterior and posterior rasmussen are with proliferative endometrium; endocervical canal is normal. The MyoSure device was advanced and the direct visualization the the endometrial polyp and endometrium were morcellated without complication. At the end of morcellation the fluid deficit was 200 mL and was estimated at approximately 200 mL were on the floor. There was minimal bleeding noted and the tenaculum removed with goad hemostasis noted. The patient tolerated the procedure well. The patient was taken to the recovery area in stable condition.
[2023-12-29] MEDS: ondansetron 2 mg/ML SDV 2 mL 4 MG IVP (13:57)
--- NOTE | 2023-12-29 15:05 | ANE.PACU2 ---
Inpatient post-anesthesia follow up: Airway intact: Yes Vital signs: Temperature 97.9 F Pulse Rate 82 Respiratory Rate 16 Blood Pressure 123/85 Pulse Oximetry 95 Oxygen Delivery Me thod Room Air Oxygen Flow Rate Fraction of Inspir ed Oxygen Hydration adequate: Yes Nausea and vomiting: No Pain level: 1 Mental status: Baseline
== END 2023-12-29 15:05 | disposition home or self-care (01) ==
PROVIDERS: PCP Family Medicine; Visit Provider Obstetrics & Gynecology
PROC: 0UDB8ZZ Extraction of Endometrium, Via Natural or Artificial Opening Endoscopic (ICD-10-PCS; CPT 58558; principal; 2023-12-29 12:00)
PROC: (CPT 58120; 2023-12-29 12:00)
DX: N84.0 Polyp of corpus uteri (principal)
CPT/HCPCS: 58558; 36415; 80053; 81001; 81025; 85025; 86850; 86900; 88305; J0690; J1100; J2250; J2371; J2405; J2704; J3010; J3490; J7030

== ENCOUNTER → 2024-09-21 09:30 | Outpatient (BNVA) | payer OTHER, SELFPAY | PROVIDERS: PCP Family Medicine; Visit Provider Nurse Practitioner Women's Health | DX: Z01.419 Encounter for gynecological examination (general) (routine) without abnormal findings (principal) | CPT/HCPCS: 87624 ==